=== PATIENT | male | born 1990 | race African-American/Black ===

== ENCOUNTER 2024-04-27 15:50 | Emergency (ER) | payer MEDICAID, OTHER ==
[~2024-04-27] VITALS: Ht 182.9 cm; Wt 88.0 kg
[2024-04-27 15:52] VITALS: BP 154/84; PULSE 103; RESP 16; O2SAT 98
[2024-04-27 16:54] VITALS: TEMP 98.6
[2024-04-27] MEDS: ACETAMINOPHEN 325MG TABLET PO ONE (16:54)
== END 2024-04-27 17:05 | disposition left against medical advice (07) ==
LOC: ER 15:50
DX: S09.90XA Unspecified injury of head, initial encounter (principal); I10 Essential (primary) hypertension; X58.XXXA Exposure to other specified factors, initial encounter; Y93.89 Activity, other specified; Y92.89 Other specified places as the place of occurrence of the external cause; Y99.8 Other external cause status
CPT/HCPCS: 99283